=== PATIENT | male | born 1980 | race Caucasian/White ===

== ENCOUNTER 2017-02-27 15:28 | Emergency (ER) | payer OTHER | END 2017-02-27 17:22 | disposition home or self-care (01) | LOC: ER 15:28 | DX: S09.90XA Unspecified injury of head, initial encounter (principal); S79.912A Unspecified injury of left hip, initial encounter; S39.92XA Unspecified injury of lower back, initial encounter; V49.9XXA Car occupant (driver) (passenger) injured in unspecified traffic accident, initial encounter | CPT/HCPCS: 70450; 72100; 73502-LT; 99284; A9270-GY ==